=== PATIENT | male | born 1970 | race Caucasian/White ===

== ENCOUNTER 2018-02-19 05:47 | Inpatient (IN) | payer OTHER ==
[2018-02-13 14:32] LABS: EOSINOPHILS % (AUTO) 2.4 % (1.0-6.0); HEMATOCRIT 46.7 % (41-53); HEMOGLOBIN 16.3 g/dL (13.5-17.5); LYMPHOCYTES % (AUTO) 23.7 % (22.0-44.0); MEAN CORPUSCULAR HEMOGLOBIN 29.7 pg (26.0-34.0); MEAN CORPUSCULAR HGB CONC 34.9 G/dL (31.0-37.0); MEAN CORPUSCULAR VOLUME 85 fL (80-100); MONOCYTES # (AUTO) 0.6 K/uL (0.1-1.0); NEUTROPHILS # (AUTO) 5.6 K/uL (1.8-7.7); NEUTROPHILS % (AUTO) 65.9 % (40.0-70.0); PLATELET COUNT (AUTO) 147 K/uL (150-450); RED BLOOD CELL COUNT(AUTO) 5.49 MIL/uL (4.50-5.90)
[2018-02-13 14:51] LABS: ANION GAP 6 mmol/L (8-16); CALCIUM, TOTAL 8.5 mg/dL (8.8-10.5); CARBON DIOXIDE 27 mmol/L (22-29); CHLORIDE 105 mmol/L (98-107); CREATININE 0.78 mg/dL (0.60-1.30); GLOMERULAR FILTR. RATE CALC > 60 mL/min (>60); GLUCOSE,RANDOM 101 mg/dL (70-110); SODIUM SERUM 138 mmol/L (136-145); UREA NITROGEN, BLOOD 15 mg/dL (7-18)
[2018-02-13 14:57] LABS: ALANINE AMINOTRANSFERASE 40 U/L (12-78); ALBUMIN 3.7 g/dL (3.4-5.0); ALKALINE PHOSPHATASE 64 U/L (46-116); ASPARTATE AMINOTRANSFERASE 22 U/L (15-37); BILIRUBIN,TOTAL 0.4 mg/dL (0.1-1.0); TOTAL PROTEIN, SERUM 7.2 g/dL (6.4-8.2)
[~2018-02-19] VITALS: Ht 177.8 cm; Wt 121.5 kg
[~2018-02-19 05:47] MED LIST: CHOL1LIQ PO; RINGERS SOLUTION,LACTATED 1,000 ML IV ONE; [UNRECOGNIZED DRUG - CODE] PO
[2018-02-19] MEDS ORDERED: RINGERS SOLUTION,LACTATED 1,000 ML IV ONE ×4 (06:00→12:22)
[2018-02-19] MEDS ORDERED: GELATIN SPONGE,ABSORBABLE 100 MM TP ONE (07:07)
[2018-02-19] MEDS ORDERED: SODIUM CHLORIDE 0.9% 10 ML ONE (07:07)
[2018-02-19] MEDS ORDERED: GUM MASTIC/STORAX/MSAL/ALCOHOL LIQUID 0.67 ML VIAL TP ONE (07:07)
[2018-02-19] MEDS ORDERED: THROMBIN, BOVINE 20000 UNITS/VIAL POWDER TP ONE (07:08)
[2018-02-19] MEDS ORDERED: BACITRACIN 50,000 UNITS/VIAL ONE (07:08)
[2018-02-19] MEDS ORDERED: SODIUM CHLORIDE 0.9% 250 ML IV ONE (07:08)
[2018-02-19] MEDS ORDERED: SODIUM CHLORIDE 0.9% 0 ML IV ONE (07:08)
[2018-02-19] MEDS ORDERED: MEPERIDINE HCL/PF 25 MG/0.5 ML AMP IVP PRN (07:30)
[2018-02-19] MEDS ORDERED: TRANEXAMIC ACID 1,000 MG in DEXTROSE 5%-WATER 50 ML IV ONE (07:30)
[2018-02-19] MEDS ORDERED: FentaNYL CITRATE-PF 100 MCG/2 ML VIAL IVP PRN (07:30)
[2018-02-19] MEDS ORDERED: BUPIVACAINE LIPOSOME/PF 1.3%-13.3MG/ML SUSPENSION 20 ML VIAL INJ ONE (07:30)
[2018-02-19] MEDS ORDERED: HYDROmorphone 2 MG/ML SYRINGE IVP PRN ×2 (07:30→09:15)
[2018-02-19] MEDS ORDERED: CeFAZolin 2 GM/DEXTROSE 50 ML IV ONE (07:30)
[2018-02-19] MEDS ORDERED: OXYGEN THERAPY IH SCH ×2 (08:00→09:15)
[2018-02-19] MEDS ORDERED: ZOLPIDEM TARTRATE 10 MG TABLET PO PRN (09:15)
[2018-02-19] MEDS ORDERED: BUPIVACAINE HCL/PF 0.5% 30 ML VIAL ONE (10:43)
[2018-02-19] MEDS ORDERED: BUPIVACAINE HCL/PF 0.25% 30 ML VIAL ONE (10:45)
[2018-02-19] MEDS ORDERED: ONDANSETRON HCL 4 MG/2 ML VIAL IVP PRN (11:30)
[2018-02-19] MEDS: RINGERS SOLUTION,LACTATED 1,000 ML IV SCH (11:30)
[2018-02-19] MEDS ORDERED: MAG HYDROX/AL HYDROX/SIMETH 30 ML SUSP UDCUP PO PRN (11:30)
[2018-02-19] MEDS ORDERED: ACETAMINOPHEN 325 MG TABLET PO PRN (11:30)
[2018-02-19] MEDS ORDERED: FentaNYL CITRATE-PF 100 MCG/2 ML VIAL ONE (11:52)
[2018-02-19] MEDS ORDERED: ALBUTEROL SULFATE HFA 90 MCG/PUFF 8 GM INHALER IH ONE (12:00)
[2018-02-19] MEDS ORDERED: ACETAMINOPHEN/ISO-OSM 1000 MG/100 ML BOTTLE IV ONE (12:00)
[2018-02-19] MEDS ORDERED: DEXAMETHASONE SOD PHOS 4 MG/ML VIAL IVP ONE (12:00)
[2018-02-19] MEDS ORDERED: SUCCINYLCHOLINE CHLORIDE 20 MG/ML 10 ML VIAL IVP ONE (12:00)
[2018-02-19] MEDS ORDERED: PROPOFOL 1% 20 ML VIAL IVP ONE (12:00)
[2018-02-19] MEDS ORDERED: MIDAZOLAM HCL 2 MG/2 ML VIAL IVP ONE (12:00)
[2018-02-19] MEDS ORDERED: LIDOCAINE HCL/PF 2% 5 ML SYRINGE IVP ONE (12:00)
[2018-02-19] MEDS ORDERED: GLYCOPYRROLATE 0.2 MG/ML VIAL IM ONE (12:00)
[2018-02-19] MEDS ORDERED: KETAMINE HCL 50 MG/ML 10 ML VIAL IVP ONE (12:00)
[2018-02-19] MEDS ORDERED: HYDROmorphone 2 MG/ML SYRINGE IVP ONE (12:00)
[2018-02-19] MEDS ORDERED: FentaNYL CITRATE-PF 100 MCG/2 ML VIAL IVP ONE (12:00)
[2018-02-19] MEDS ORDERED: ROCURONIUM BROMIDE 10 MG/ML 5 ML VIAL IVP ONE (12:00)
[2018-02-19] MEDS ORDERED: PROPOFOL 1% ISO-OSM 1000 MG/100 ML BOTTLE IV ONE (12:00)
[2018-02-19] MEDS ORDERED: NEOSTIGMINE METHYLSULFATE 1 MG/ML 10 ML VIAL IVP ONE (12:00)
[2018-02-19] MEDS ORDERED: METOCLOPRAMIDE HCL 5 MG/ML 2 ML VIAL IVP ONE (12:00)
[2018-02-19] MEDS ORDERED: MEPERIDINE HCL/PF 25 MG/0.5 ML AMP ONE (12:08)
[2018-02-19] MEDS ORDERED: HydrALAZINE HCL 20 MG/ML VIAL IVP STA (12:26)
[2018-02-19] MEDS ORDERED: HydrALAZINE HCL 20 MG/ML VIAL ONE (12:29)
[2018-02-19] MEDS ORDERED: LABETALOL HCL 5 MG/ML 20 ML VIAL IVP ONE ×2 (12:52→13:00)
[2018-02-19] MEDS ORDERED: DIAZEPAM 5 MG/ML 2 ML SYRINGE IVP STA (13:08)
[2018-02-19 14:28] VITALS: BP 147/73
[2018-02-19] MEDS: CYCLOBENZAPRINE HCL 10 MG TABLET PO SCH ×2 (14:54→20:07)
[2018-02-19] MEDS: CeFAZolin SODIUM 1 GM in DEXTROSE 5%-WATER 10 ML IV SCH ×2 (15:55→23:44)
[2018-02-19] MEDS: ACETAMINOPHEN 1000 MG/ISO-OSM 100 ML IV SCH (16:47)
[2018-02-19] MEDS: OXYGEN THERAPY IH SCH ×2 (16:48→20:00)
[2018-02-19] MEDS: DOCUSATE SODIUM 100 MG CAPSULE PO SCH (20:07)
[2018-02-19] MEDS ORDERED: HydrALAZINE HCL 10 MG TABLET PO PRN (20:45)
[2018-02-19 20:50] VITALS: BP 135/71
[2018-02-19 21:17] LABS: CHOL/HDL RATIO 2.6 (4.2-7.3)
[2018-02-19] MEDS: DIAZEPAM 5 MG TABLET PO PRN (23:44)
[2018-02-19] MEDS: AmLODIPine BESYLATE 5 MG TABLET PO SCH (23:45)
[2018-02-20] VITALS (7 sets, daily range): BP systolic 111–136; BP diastolic 52–96
[2018-02-20] MEDS: ACETAMINOPHEN 1000 MG/ISO-OSM 100 ML IV SCH (00:36)
[2018-02-20] MEDS: RINGERS SOLUTION,LACTATED 1,000 ML IV SCH (00:50)
[2018-02-20 05:20] LABS: BASOPHILS % (AUTO) 0.6 % (0.0-2.0); EOSINOPHILS % (AUTO) 0.1 % (1.0-6.0); HEMATOCRIT 41.9 % (41-53); HEMOGLOBIN 14.6 g/dL (13.5-17.5); LYMPHOCYTES # (AUTO) 1.8 K/uL (1.0-4.8); LYMPHOCYTES % (AUTO) 12.6 % (22.0-44.0); MEAN CORPUSCULAR HEMOGLOBIN 29.3 pg (26.0-34.0); MEAN CORPUSCULAR HGB CONC 34.8 G/dL (31.0-37.0); MEAN CORPUSCULAR VOLUME 84 fL (80-100); MONOCYTES # (AUTO) 1.2 K/uL (0.1-1.0); NEUTROPHILS # (AUTO) 11.3 K/uL (1.8-7.7); NEUTROPHILS % (AUTO) 78.7 % (40.0-70.0); PLATELET COUNT (AUTO) 147 K/uL (150-450); RED BLOOD CELL COUNT(AUTO) 4.98 MIL/uL (4.50-5.90); RED CELL DISTRIBUTION WIDTH 14.2 % (11.5-14.5)
[2018-02-20 05:38] LABS: ANION GAP 6 mmol/L (8-16); CALCIUM, TOTAL 8.6 mg/dL (8.8-10.5); CARBON DIOXIDE 28 mmol/L (22-29); CHLORIDE 105 mmol/L (98-107); CREATININE 0.71 mg/dL (0.60-1.30); GLOMERULAR FILTR. RATE CALC > 60 mL/min (>60); GLUCOSE,RANDOM 116 mg/dL (70-110); POTASSIUM 3.7 mmol/L (3.5-5.1); SODIUM SERUM 139 mmol/L (136-145); UREA NITROGEN, BLOOD 16 mg/dL (7-18)
[2018-02-20] MEDS: OXYGEN THERAPY IH SCH (09:13)
[2018-02-20] MEDS: AmLODIPine BESYLATE 5 MG TABLET PO SCH (09:13)
[2018-02-20] MEDS: DOCUSATE SODIUM 100 MG CAPSULE PO SCH ×2 (09:13→20:32)
[2018-02-20] MEDS: CYCLOBENZAPRINE HCL 10 MG TABLET PO SCH ×2 (09:13→20:32)
[2018-02-20] MEDS: OxyCODONE HCL/ACETAMINOPHEN 5-325 MG TABLET PO PRN (14:23)
[2018-02-20] MEDS: DIAZEPAM 5 MG TABLET PO PRN (14:23)
[2018-02-21 04:47] VITALS: BP 132/77
[2018-02-21] MEDS: OxyCODONE HCL/ACETAMINOPHEN 5-325 MG TABLET PO PRN (04:57)
[2018-02-21 06:21] LABS: BASOPHILS % (AUTO) 0.6 % (0.0-2.0); EOSINOPHILS % (AUTO) 1.7 % (1.0-6.0); HEMATOCRIT 42.2 % (41-53); HEMOGLOBIN 14.6 g/dL (13.5-17.5); LYMPHOCYTES # (AUTO) 2.5 K/uL (1.0-4.8); LYMPHOCYTES % (AUTO) 22.3 % (22.0-44.0); MEAN CORPUSCULAR HEMOGLOBIN 29.5 pg (26.0-34.0); MEAN CORPUSCULAR HGB CONC 34.7 G/dL (31.0-37.0); MEAN CORPUSCULAR VOLUME 85 fL (80-100); MONOCYTES % (AUTO) 9.1 % (2.0-9.0); NEUTROPHILS # (AUTO) 7.3 K/uL (1.8-7.7); NEUTROPHILS % (AUTO) 66.3 % (40.0-70.0); PLATELET COUNT (AUTO) 139 K/uL (150-450); RED BLOOD CELL COUNT(AUTO) 4.96 MIL/uL (4.50-5.90); RED CELL DISTRIBUTION WIDTH 14.5 % (11.5-14.5)
[2018-02-21 08:31] VITALS: BP 129/67
[2018-02-21] MEDS: DOCUSATE SODIUM 100 MG CAPSULE PO SCH (08:54)
[2018-02-21] MEDS: CYCLOBENZAPRINE HCL 10 MG TABLET PO SCH (08:55)
[2018-02-21] MEDS: AmLODIPine BESYLATE 5 MG TABLET PO SCH (08:55)
[2018-02-21 12:22] VITALS: BP 118/94
[2018-02-21] MEDS ORDERED: PERCT10 PO (13:14)
[2018-02-21] MEDS ORDERED: CYCL10 PO (13:18)
[2018-02-21] MEDS ORDERED: CEPH500 PO (13:23)
== END 2018-02-21 15:30 | disposition home or self-care (01) | DRG 460 ==
LOC: 4E 05:47
PROVIDERS: ADMIT Neurological Surgery; ATTEND Neurological Surgery
PROC: 0SB40ZZ Excision of Lumbosacral Disc, Open Approach (ICD-10-PCS; 2018-02-19)
PROC: 0SG30AJ Fusion of Lumbosacral Joint with Interbody Fusion Device, Posterior Approach, Anterior Column, Open Approach (ICD-10-PCS; principal; 2018-02-19 07:30)
DX: M51.27 Other intervertebral disc displacement, lumbosacral region (principal); K21.9 Gastro-esophageal reflux disease without esophagitis; M19.90 Unspecified osteoarthritis, unspecified site; I10 Essential (primary) hypertension; Z90.89 Acquired absence of other organs; Z87.891 Personal history of nicotine dependence; Z91.14 Patient's other noncompliance with medication regimen; Z91.040 Latex allergy status; Z91.048 Other nonmedicinal substance allergy status; Z79.891 Long term (current) use of opiate analgesic
CPT/HCPCS: 85732; 86850; 86900; 86901; 86920; 87081; 88300; 97162; 97166; 97535; C9290; G0238; J0131; J0330; J0360; J0690; J1030; J1100; J1170; J2250; J2704; J2765; J3010; J3490; J3535; J7050; J7060; J7120